=== PATIENT | male | born 1985 | race Caucasian/White ===

== ENCOUNTER 2018-07-16 13:20 | Emergency (ER) | payer OTHER ==
[2018-07-16 13:29] VITALS: BP 103/61; PULSE 85; TEMP 98.8; BMI 23.3
--- NOTE | 2018-07-16 13:47 | PDOC ---
History of Present Illness - General Chief Complaint: Cold Symptoms Stated Complaint: COLD SYMPTOMS Time Seen by Provider: 07/16/18 13:26 History Source: Patient Exam Limitations: No Limitations Past History - Past Medical History Allergies/Adverse Reactions: Allergies Allergy/AdvReac Type Severity Reaction Status Date / Time No Known Allergies Allergy Verified 07/16/18 13:25 Home Medications: Ambulatory Orders NK [No Known Home Medication] 07/16/18 Anemia: No Asthma: No Cancer: No Cardiac Disorders: No CVA: No COPD: No CHF: No DVT: No Dementia: No Diabetes: No - Suicide/Smoking/Psychosocial Hx Smoking History: Never smoked Information on smoking cessation initiated: No Hx Alcohol Use: No Drug/Substance Use Hx: No *Physical Exam - Vital Signs Last Vital Signs Temp Pulse Resp BP Pulse Ox 98.8 F 85 20 103/61 99 07/16/18 13:25 07/16/18 13:25 07/16/18 13:25 07/16/18 13:25 07/16/18 13:25 - Physical Exam General Appearance: No: Apparent Distress HEENT: positive: Pharynx Normal Neck: negative: Lymphadenopathy (R), Lymphadenopathy (L) Respiratory/Chest: positive: Lungs Clear, Normal Breath Sounds. negative: Respiratory Distress Cardiovascular: positive: Regular Rhythm, Regular Rate, S1, S2. negative: Murmur Gastrointestinal/Abdominal: positive: Normal Bowel Sounds, Soft. negative: Tender, Distended, Guarding, Rebound Musculoskeletal: negative: CVA Tenderness Integumentary: positive: Normal Color. negative: Rash, Ecchymosis, Bruising Neurologic: positive: Alert, Normal Mood/Affect ED Treatment Course - RADIOLOGY Radiology Studies Ordered: Category Date Time Status CHEST PA & LAT [RAD] Stat Radiology 07/16/18 13:40 Ordered Medical Decision Making - Medical Decision Making 32 y/o M with no sig pmh presents with fever, night sweats, chills and fatigue x 2 weeks along with unintentional weight loss of 10 pounds. Also mentions having some watery diarrhea x 2 days. Saw his PCP and had full blood work done 3 days ago which was unremarkable. Also states he had CXR done around 6 days ago which was normal. States his PCP is unsure of what is causing his sxs and prescribed him Levaquin, which he has not yet taken. Denies sick contacts, recent travel, rash, arthralgia, cough, sore throat, rhinorrhea, congestion, sob , cp, n/v, urinary complaints, rash. Did not take any antipyretics today. Patient brought lab work with him, which was reviewed and unremarkable (HIV testing was also done which was negative) Plan: CXR 07/16/18 13:44 CXR negative Patient advised further f/u with his PCP 07/16/18 14:12 *DC/Admit/Observation/Transfer Diagnosis at time of Disposition: Malaise - Discharge Dispostion Disposition: HOME Condition at time of disposition: Stable Decision to Admit order: No - Referrals - Patient Instructions Additional Instructions: Thank you for choosing [facility]. It was a pleasure taking care of you. Your chest xray was normal Please follow-up with your regular doctor - you may need further blood work and imaging done to determine the cause of your symptoms Return to the Emergency Department if your symptoms worsen or persist or have other concerning symptoms. - Post Discharge Activity
== END 2018-07-16 14:29 | disposition home or self-care (01) ==
LOC: JERFT 13:20
DX: R53.81 Other malaise (principal); R61 Generalized hyperhidrosis
CPT/HCPCS: 71046-TC-FY; 99281-25